=== PATIENT | female | born 1990 | race African-American/Black ===

== ENCOUNTER 2019-12-31 21:20 | Emergency (ER) | payer OTHER ==
[~2019-12-31] VITALS: Ht 167.6 cm; Wt 45.5 kg
[2019-12-31 22:59] VITALS: BP 125/81
== END 2019-12-31 23:01 | disposition home or self-care (01) ==
LOC: EMS 21:21
DX: R05 Cough (principal); Z20.828 Contact with and (suspected) exposure to other viral communicable diseases
CPT/HCPCS: 87426